=== PATIENT | male | born 1970 | race Caucasian/White ===

== ENCOUNTER 2017-11-27 16:37 | Emergency (ER) | payer OTHER ==
[~2017-11-27] VITALS: Ht 182.9 cm; Wt 71.9 kg
[2017-11-27 16:40] VITALS: BP 149/69; PULSE 69; RESP 18; TEMP 98.4; O2SAT 99
[2017-11-27 18:08] LABS: BILIRUBIN, URINE NEG (NEG); BLOOD, URINE NEG (NEG); GLUCOSE,URINE NEG (NEG); KETONE, URINE NEG (NEG); NITRITE,URINE NEG (NEG); URINE LEUKOCYTE ESTERASE MOD (NEG)
[2017-11-27 18:19] LABS: RBC, URINE 0-3 /hpf (0-3); SQUAMOUS EPITHELIAL CELL URINE 0-5 /hpf (0-5); URINE COLOR YELLOW (YELLW/STRAW); WBC, URINE INNUM /hpf (0-5); WHITE BLOOD CELL CLUMPS MOD
[2017-11-27] MEDS ORDERED: LIDOCAINE HCL 1% PF 30 ML VIAL ONE (18:28)
[2017-11-27] MEDS ORDERED: cefTRIAXone 250 MG VIAL IM ONE (18:30)
[2017-11-27] MEDS ORDERED: LIDOCAINE HCL 1% 50 ML VIAL IM ONE (18:30)
[2017-11-27] MEDS ORDERED: AZITHROMYCIN PWD FOR SUSP 1 GM PACKET PO ONE (18:30)
[2017-11-27] MEDS ORDERED: CEPH-460 PO (18:38)
[2017-11-27] MEDS ORDERED: ACYC400T PO (18:38)
--- NOTE | 2017-11-27 18:38 | PD ---
HPI Chief Complaint: Complaint Time Seen by Provider: 18:00 Travel History International Travel<30 days: No Contact w/Intl Traveler<30days: No Traveled to known affect area: No History of Present Illness HPI Patient was seen and examined in the presence of a nurse at all times This is a 47-year-old male who presents for possible sexual transmitted disease. He states he has had one day of penile discharge, mild pain with urination. He has a few lesions on the tip of his penis. No pain in the testicles or scrotum. No fever, chills, abdominal pain, vomiting, diarrhea. He has been otherwise well recently. He states that he had some sort of STD in the past and was treated for this. He denies a history of hepatitis or HIV. No known alleviating factors. PFSH Past Medical History Respiratory: Yes (PNEUMOTHORAX) Influenza Vaccination: No Past Surgical History Surgical History: No Previous Surgery Social History Alcohol Use: Yes (WEEKENDS) Tobacco Use: Yes (10/14 PPD) Substance Use: No Allergies-Medications (Allergen,Severity, Reaction): Coded Allergies: No Known Allergies (Unverified , 11/27/17) Reported Meds & Prescriptions Reported Meds & Active Scripts Active Acyclovir 400 Mg Tab 400 Mg PO TID 10 Days Keflex (Cephalexin) 500 Mg Cap 500 Mg PO Q8H Review of Systems Except as stated in HPI: all other systems reviewed are Neg Physical Exam Narrative GENERAL: Alert, well nourished, well appearing patient resting on the bed in no acute distress. Vital Signs reviewed SKIN: Focused skin assessment warm/dry. HEAD: Atraumatic. Normocephalic. EYES: Pupils equal and round. No scleral icterus. No injection or drainage. ENT: No nasal bleeding or discharge. Mucous membranes pink and moist. NECK: Trachea midline. No JVD. Spontaneous, painless full range of motion with no meningismus CARDIOVASCULAR: Regular rate and rhythm. No murmur appreciated. Extremities warm and well perfused with bounding peripheral pulses RESPIRATORY: No accessory muscle use. Clear to auscultation. Breath sounds equal bilaterally. Breathing easily and speaking in full sentences GASTROINTESTINAL: Abdomen soft, non-tender, nondistended. Normal bowel sounds. No rigid, rebound, guarding. No CVA tenderness exam performed in presence of RN: There is a small amount of purulent drainage at the penis. There are multiple small erythematous slightly ulcerated lesions on tip of penis. No tenderness on testicular exam. No overlying skin changes on the scrotum. NEUROLOGICAL: Awake and alert. Motor grossly within normal limits. Normal speech. Sensation intact. Normal gait Data Data Last Documented VS Vital Signs Date Time Temp Pulse Resp B/P (MAP) Pulse Ox O2 Delivery O2 Flow Rate FiO2 11/27/17 16:40 98.4 69 18 149/69 (95) 99 Orders Orders Urinalysis - C+S If Indicated (11/27/17 16:43) Gc And Chlamydia Pcr (11/27/17 16:43) Urine Culture (11/27/17 17:40) Azithromycin Powd Pack (Zithromax Powd P (11/27/17 18:30) Ceftriaxone Inj (Rocephin Inj) (11/27/17 18:30) Lidocaine 1% Inj (50 Ml) (Xylocaine 1% I (11/27/17 18:30) Lidocaine Pf 1% Inj (Xylocaine-Mpf 1% In (11/27/17 18:28) Ed Discharge Order (11/27/17 18:38) Labs Laboratory Tests Test 11/27/17 17:40 Urine Color YELLOW Urine Turbidity HAZY Urine pH 6.0 Urine Specific [place] 1.025 Urine Protein NEG mg/dL Urine Glucose (UA) NEG mg/dL Urine Ketones NEG mg/dL Urine Occult Blood NEG Urine Nitrite NEG Urine Bilirubin NEG Urine Leukocyte Esterase MOD Urine RBC 0-3 /hpf Urine WBC INNUM /hpf Urine WBC Clumps MOD Urine Squamous Epithelial Cells 0-5 /hpf Microscopic Urinalysis Comment CULTURE INDICATED MDM Medical Decision Making Medical Screen Exam Complete: Yes Emergency Medical Condition: Yes Medical Record Reviewed: Yes Interpretation(s) Date/Time Source Procedure Growth Status 11/27/17 17:40 Urine Clean Catch Urine Culture Pending Received Laboratory Tests Test 11/27/17 17:40 Urine Color YELLOW Urine Turbidity HAZY Urine pH 6.0 Urine Specific [place] 1.025 Urine Protein NEG mg/dL Urine Glucose (UA) NEG mg/dL Urine Ketones NEG mg/dL Urine Occult Blood NEG Urine Nitrite NEG Urine Bilirubin NEG Urine Leukocyte Esterase MOD Urine RBC 0-3 /hpf Urine WBC INNUM /hpf Urine WBC Clumps MOD Urine Squamous Epithelial Cells 0-5 /hpf Microscopic Urinalysis Comment CULTURE INDICATED Differential Diagnosis Gonorrhea, chlamydia, herpes, UTI Narrative Course The patient appears nontoxic. His urinalysis is suggestive of infection. The lesions on the tip of his penis are concerning for herpes. Plan for treatment with acyclovir. We will treat his UTI with Keflex. He was given a dose of Rocephin and azithromycin to cover gonorrhea ankle medial. He was counseled regarding safe sex practices. He will need to follow up closely with the health department. He understands his partner should be tested and treated. He is comfortable with this plan and eager to be discharged. Diagnosis Primary Impression: Penile discharge, without blood Additional Impression: UTI (urinary tract infection) Qualified Codes: N30.00 - Acute cystitis without hematuria Referrals: [facility] Dept. 1 week Patient Instructions: General Instructions, Genital Herpes Simplex (ED), Urinary Tract Infection in Men (DC) Additional Instructions: Take acyclovir as directed. Take Keflex as directed. Practice safe sex. Follow up with health department. Med/Other Pt SpecificInfo: Prescription(s) given Scripts Acyclovir (Acyclovir) 400 Mg Tab 400 MG PO TID for 10 Days, TAB 0 Refills Prov: Ashleigh Santos MD 11/27/17 Cephalexin (Keflex) 500 Mg Cap 500 MG PO Q8H for Infection, #30 CAP 0 Refills Prov: Ashleigh Santos MD 11/27/17 Disposition: 01 DISCHARGE HOME Condition: Stable Ashleigh Santos MD Nov 27, 2017 18:38
[2017-11-27 19:15] VITALS: BP 138/82
== END 2017-11-27 19:17 | disposition home or self-care (01) ==
LOC: PHED 16:37
DX: R36.9 Urethral discharge, unspecified (principal); N30.00 Acute cystitis without hematuria; F17.210 Nicotine dependence, cigarettes, uncomplicated
CPT/HCPCS: 81001; 87086; 87491; 87591; 96372; 99283; J0696